=== PATIENT | female | born 1940 | race Two or more races ===

== ENCOUNTER 2018-02-23 10:23 | Outpatient (CLI) | payer OTHER ==
[~2018-02-23 10:23] MED LIST: CELEBREX100 MG PO; SYNTHROID50 MCG PO; TOPROL XL25 M1 PO
== END 2018-02-23 10:28 | disposition home or self-care (01) ==
LOC: RX STUDY 10:23
DX: R13.10 Dysphagia, unspecified (principal)

== ENCOUNTER 2023-08-26 09:45 | Emergency (ER) | payer OTHER ==
[~2023-08-26] VITALS: Ht 165.1 cm; Wt 63.5 kg
[2023-08-26 10:37] LABS: URINE APPEARANCE Clear; URINE BILIRRUBIN Negative (NEGATIVE); URINE BLOOD Small; URINE COLOR Yellow; URINE GLUCOSE Negative (NEGATIVE); URINE LEUKOCYTE Negative; URINE NITRATE Negative; URINE PROTEIN Negative (NEGATIVE); URINE UROBILINOGEN 0.2 E.U./dl
[2023-08-26 10:39] LABS: URINE BACTERIA 8.8 uL (0.0-1933); URINE EPITHELIAL CELLS 3.8 uL (0.0-38.8); URINE RBC 34.6 uL (0.0-20.8)
[2023-08-26 10:42] LABS: URINE WBC 1.2 uL (0.0-23.2)
[2023-08-26 10:46] LABS: HEMATOCRIT 45.9 % (36.0-45.00); HEMOGLOBIN 15.5 g/dL (12.0-15.00); MEAN CELL VOLUME 94.4 fL (80.00-100.00); MEAN CORPUSCULAR HEMOGLOBIN 31.9 pg (27.00-32.0); MEAN CORPUSCULAR HGB CONC 33.8 g/dl (32.0-36.0); PLATELET COUNT 226 K/uL (150-450); RED BLOOD COUNT 4.86 M/uL (4.00-6.00); RED CELL DISTRIBUTION WIDTH 13.8 % (11.5-14.5)
[2023-08-26 11:10] LABS: CALCIUM 8.3 mg/dL (8.5-10.1); CREATININE SERUM 0.66 mg/dL (0.55-1.02); GFR 85.53; POTASSIUM 4.2 mEq/L (3.5-5.1)
== END 2023-08-26 15:52 | disposition home or self-care (01) ==
LOC: ER 09:45
PROVIDERS: Emergency Medicine
DX: R53.81 Other malaise (principal); Z88.0 Allergy status to penicillin; M19.90 Unspecified osteoarthritis, unspecified site; E03.9 Hypothyroidism, unspecified; I10 Essential (primary) hypertension
CPT/HCPCS: 36415; 93005; 96365; 96366; 99284; J0696; J1885; J7030